=== PATIENT | female | born 1975 | race Caucasian/White ===

== ENCOUNTER 2021-08-11 06:02 | Day surgery (SDC) | payer OTHER ==
[2021-08-11] MEDS ORDERED: Lactated Ringers 1,000 ML IV SCH (06:30)
[2021-08-11] MEDS ORDERED: CEFAZOLIN 2 GM-D5W BAG** 2 GM/50 ML ML IV SCH (06:30)
[2021-08-11] MEDS ORDERED: Sensorcaine 0.25% 10 ML ONE (07:10)
[2021-08-11] MEDS ORDERED: Zemuron 100 MG/10 ML ONE (07:23)
[2021-08-11] MEDS ORDERED: Xylocaine-Mpf 2% 5 Ml Vial ONE (07:23)
[2021-08-11] MEDS ORDERED: TORAdol 30 mg Injection ONE (07:23)
[2021-08-11] MEDS ORDERED: Zofran 4 MG/2 ML VIAL ONE (07:23)
[2021-08-11] MEDS ORDERED: Decadron 4 MG INJ ONE (07:23)
[2021-08-11] MEDS ORDERED: BRIDION 200MG/2ML IV ONE (07:23)
[2021-08-11] MEDS ORDERED: DIPRIVAN 200 MG/20 ML IV ONE (07:23)
[2021-08-11] MEDS ORDERED: SUBLIMAZE 100 MCG/2 ML ONE ×2 (07:23→08:36)
[2021-08-11] MEDS ORDERED: Ephedrine Sulfate 50 MG/ML ONE (07:48)
[2021-08-11] MEDS ORDERED: ROBINUL ONE (07:48)
[2021-08-11 09:15] LABS: Appearance CLEAR (CLEAR); Bilirubin NEGATIVE (NEGATIVE); Blood NEGATIVE Ery/ul (0-5); Glucose NEGATIVE (NEGATIVE); Ketones NEGATIVE (NEGATIVE); Leukocyte Esterase NEGATIVE (NEGATIVE); Nitrite NEGATIVE (NEGATIVE); Protein,Urine Dip NEGATIVE (Negative); RBC 0-2 /HPF (0-2); Specific Gravity 1.008 (1.005-1.025); Urobilinogen NEGATIVE mg/dL (0-1)
[2021-08-11 09:17] VITALS: O2SAT 95
[2021-08-11 09:25] VITALS: BP 130/83; PULSE 72
--- NOTE | 2021-08-12 08:04 | OP ---
SURGERY DATE/TIME: 08/11/2021 0724 PREOPERATIVE DIAGNOSIS: Chronic pelvic pain and menorrhagia. POSTOPERATIVE DIAGNOSIS: Chronic pelvic pain and menorrhagia. PROCEDURE: Diagnostic laparoscopy, D&C with endometrial ablation using NovaSure. SURGEON: Estevan Balderas D.O. ASSISTANT HAIRSTYLIST: Javad Junior nursing surgical services director. ANESTHESIA: General. ESTIMATED BLOOD LOSS: Minimal. COMPLICATIONS: None. INDICATIONS: The risks, benefits, indications and alternatives of the procedure reviewed with the patient prior to procedure. The patient understood the risk of infection, bleeding, bowel injury, bladder injury, ureteral injury, uterine perforation, pelvic infection, thromboembolic disorder associated with the surgery however desires to have this surgery as a possible means to alleviate her current medical condition. DESCRIPTION OF PROCEDURE AND FINDINGS: At this point the patient is taken to the operating room, given general sedation, placed in the dorsal lithotomy position, prepped and draped in the usual sterile fashion. A weighted speculum is then placed in the patient's vagina and the anterior lip of the cervix is grasped with a single tooth tenaculum. Endocervical dilators were advanced through the endocervical canal as a means to dilate the cervix where a uterine manipulator was inserted in through the endocervical canal with means to manipulate the uterus. Attention is then turned to the patient's abdomen where a 5 mm skin incision is made in the dorsal fold. The 5 mm trocar and sleeve were advanced under direct visualization where pneumoperitoneum was obtained with 4 liters of CO2 gas. An additional incision was made 2 cm above the symphysis pubis where a 5 mm incision is made and a 5 mm trocar and sleeve were advanced under direct visualization. From this point visualization of the pelvic region appeared to be within normal limits. There were no gross abnormalities located within the pelvic region. The bilateral ovaries appeared to be within normal limits. The appendix appeared to be within normal limits in the right lower quadrant region. The patient had complained of right lower quadrant discomfort. However on visualization there was no abnormalities located within the right adnexa in the right lower quadrant region where there were no adhesions that were located in that region as well. A survey of the patient's abdominal region appeared to be within normal limits. A survey of the patient's left lower quadrant as well as middle quadrant region appeared to be within normal limits as well. From this point the instruments were removed from the patient's abdomen. CO2 gas is released. The incisions were closed with 4-0 Monocryl suture. Attention was then turned to the patient's vaginal region where at this point, a weighted speculum is then placed into the patient's vagina and the anterior lip of the cervix is grasped with a single tooth tenaculum. From this point the uterine manipulator was removed. At this point a curette was then placed into the fundus of the uterus and curettage is performed in all quadrants of the uterus retrieving a mild amount of tissue. Hemostasis is obtained at this point. From this point, the Novasure was then taken and placed through the endocervical region towards the fundal region, retracted approximately 1 cm with a length of 5 cm where it was engaged at this time with a 2.8 cm width. The machine was turned on for an ablative time of 52 seconds. After completion of the ablation, the Novasure was disengaged and removed from the uterine cavity without complication. From this point, all remaining instruments were removed from the patient's vaginal region. The patient was then taken out of the dorsal lithotomy position and was then taken out of anesthesia and was then taken to the recovery room in stable condition. All instruments and laps were accounted for x2.
== END 2021-08-11 09:38 | disposition home or self-care (01) ==
LOC: SDC 06:02
PROVIDERS: ATTEND Obstetrics & Gynecology
DX: N92.0 Excessive and frequent menstruation with regular cycle (principal); R10.2 Pelvic and perineal pain
CPT/HCPCS: 58120; 81001; 84703; 87086; 88305; J0690; J1100; J1885; J2405; J2704; J3010